=== PATIENT | female | born 1985 | race Caucasian/White ===

== ENCOUNTER → 2017-01-01 | Outpatient (CLI) | payer OTHER ==
[2017-01-01 16:02] LABS: ALBUMIN 4.1 GM/DL (3.2-5.2); ALBUMIN/GLOBULIN RATIO 1.24 (1.00-1.93); ALKALINE PHOSPHATASE 45 U/L (45-117); ALT/SGPT 28 U/L (12-78); ANION GAP 9 MEQ/L (8-16); AST/SGOT 18 U/L (15-37); BILIRUBIN,TOTAL 0.7 MG/DL (0.2-1.0); BLOOD UREA NITROGEN 15 MG/DL (7-18); CALCIUM LEVEL 9.2 MG/DL (8.5-10.1); CARBON DIOXIDE LEVEL 24 MEQ/L (21-32); CHLORIDE LEVEL 106 MEQ/L (98-107); CHOLESTEROL LEVEL 145 MG/DL (<200); CREATININE FOR GFR 0.65 MG/DL (0.55-1.02); GLOMERULAR FILTRATION RATE > 60.0 (>60); GLUCOSE, FASTING 86 MG/DL (70-105); POTASSIUM SERUM 4.1 MEQ/L (3.5-5.1); SODIUM LEVEL 139 MEQ/L (136-145); TOTAL PROTEIN 7.4 GM/DL (6.4-8.2); TRIGLYCERIDES LEVEL 66 MG/DL (<150)
== END ==
LOC: M LAB 14:27
PROVIDERS: ATTEND Nurse Practitioner Family
DX: Z13.228 Encounter for screening for other metabolic disorders (principal)

== ENCOUNTER → 2017-12-23 | Outpatient (REF) | payer OTHER | LOC: M SFHCWAGY 17:12 | DX: R30.0 Dysuria (principal) ==

== ENCOUNTER → 2018-03-18 | Outpatient (CLI) | payer OTHER ==
[2018-03-18 15:32] LABS: BASO % 0.2 % (0.0-1.0); EOS # 0.1 10^3/uL (0.0-0.50); EOS % 0.8 % (0.0-3.0); HEMATOCRIT 37.8 % (36.0-47.0); HEMOGLOBIN 13.3 g/dl (12.0-15.5); IMMATURE GRANULOCYTE % 0.2 % (0-3.0); LYMPH # 1.9 10^3/uL (1.5-4.5); LYMPH % 20.1 % (24.0-44.0); MEAN CORPUSCULAR HEMOGLOBIN 32.7 pg (27.0-33.0); MEAN CORPUSCULAR HGB CONC 35.2 g/dl (32.0-36.5); MEAN CORPUSCULAR VOLUME 92.9 fl (80.0-96.0); MONO # 0.8 10^3/uL (0.0-0.8); MONO % 8.1 % (0.0-5.0); NEUTROPHILS # 6.7 10^3/uL (1.8-7.7); NEUTROPHILS % 70.6 % (36.0-66.0); PLATELET COUNT, AUTOMATED 239 10^3/uL (150-450); RED BLOOD COUNT 4.07 10^6/uL (4.00-5.40); RED CELL DISTRIBUTION WIDTH 11.1 % (11.5-14.5); WHITE BLOOD COUNT 9.5 10^3/uL (4.0-10.0)
[2018-03-18 15:55] LABS: AMPHETAMINES URINE REFLEX NEGATIVE (NEGATIVE); BARBITURATES URINE REFLEX NEGATIVE (NEGATIVE); BENZODIAZEPINES URINE REFLEX NEGATIVE (NEGATIVE); CANNABINOIDS URINE REFLEX NEGATIVE (NEGATIVE); COCAINE METABOLITE URINE REFLE NEGATIVE (NEGATIVE); METHADONE URINE REFLEX NEGATIVE (NEGATIVE); OPIATES URINE REFLEX NEGATIVE (NEGATIVE); PHENCYCLIDINE URINE REFLEX NEGATIVE (NEGATIVE)
[2018-03-18 17:03] LABS: CHLAMYDIA DNA AMPLIFICATION NEGATIVE (NEGATIVE); GC DNA AMPLIFICATION NEGATIVE (NEGATIVE)
[2018-03-20 09:32] LABS: RUBELLA IgG QUALITATIVE SUSCEPTIBLE (IMMUNE)
[2018-03-20 09:45] LABS: HBsAg Prenatal NEGATIVE (NEGATIVE); HEPATITIS B SURFACE ANTIGEN NEGATIVE (NEGATIVE)
[2018-03-20 10:03] LABS: HIV 1&2 SCREEN CENTAUR NEGATIVE (NEGATIVE)
[2018-03-20 10:10] LABS: HEPATITIS C VIRUS ABY INDEX > 11.0 INDEX (<0.8)
[2018-03-24 00:07] LABS: HCV RNA NAA QUALITATIVE Positive (Negative)
== END ==
LOC: M LAB 14:26
DX: Z34.81 Encounter for supervision of other normal pregnancy, first trimester (principal); Z3A.08 8 weeks gestation of pregnancy
CPT/HCPCS: 86762

== ENCOUNTER → 2018-03-24 | Outpatient (CLI) | payer OTHER ==
[2018-03-24 17:33] LABS: ALBUMIN 3.8 GM/DL (3.2-5.2); ALBUMIN/GLOBULIN RATIO 1.03 (1.00-1.93); ALKALINE PHOSPHATASE 38 U/L (45-117); ALT/SGPT 212 U/L (12-78); ANION GAP 10 MEQ/L (8-16); AST/SGOT 95 U/L (7-37); BILIRUBIN,TOTAL 0.4 MG/DL (0.2-1.0); BLOOD UREA NITROGEN 14 MG/DL (7-18); CALCIUM LEVEL 8.8 MG/DL (8.5-10.1); CARBON DIOXIDE LEVEL 24 MEQ/L (21-32); CHLORIDE LEVEL 104 MEQ/L (98-107); CREATININE FOR GFR 0.55 MG/DL (0.55-1.30); GLOMERULAR FILTRATION RATE > 60.0 (>60); GLUCOSE, FASTING 104 MG/DL (70-100); SODIUM LEVEL 138 MEQ/L (136-145); TOTAL PROTEIN 7.5 GM/DL (6.4-8.2)
[2018-03-25 10:56] LABS: HEPATITIS B SURFACE ANTIBODY POSITIVE (POSITIVE)
[2018-03-30 15:40] LABS: ALPHA 2-MACROGLOBULIN 202 mg/dL (110-276); ALT 204 IU/L (0-40); APOLIPOPROTEIN A-1 131 mg/dL (116-209); FIBROSIS SCORE 0.09 (0.00-0.21); GGT 23 IU/L (0-60); HAPTOGLOBIN 107 mg/dL (34-200); HEPATITIS A IgG TOTAL Positive (Negative); HEPATITIS B CORE ANTIBODY IGG Negative (Negative); HEPATITIS C QUANTITATION 3134120 IU/mL (.); HEPATITIS C VIRUS GENOTYPE 3 (.); NECROINFLAM SCORE 0.76 (0.00-0.17); NECROINFLAMM GRADE A3-Severe activity (.); TOTAL BILIRUBIN 0.3 mg/dL (0.0-1.2)
== END ==
LOC: M LAB 16:00
DX: Z34.81 Encounter for supervision of other normal pregnancy, first trimester (principal); Z3A.08 8 weeks gestation of pregnancy
CPT/HCPCS: 84460

== ENCOUNTER → 2018-05-14 | Outpatient (REF) | payer MEDICAID | LOC: M LAB REF 16:54 | DX: Z34.82 Encounter for supervision of other normal pregnancy, second trimester (principal) ==

== ENCOUNTER → 2018-06-16 | Outpatient (CLI) | payer OTHER | LOC: M RAD 12:04 | DX: Z34.82 Encounter for supervision of other normal pregnancy, second trimester (principal); Z36.89 Encounter for other specified antenatal screening; Z3A.20 20 weeks gestation of pregnancy | CPT/HCPCS: 76817 ==

== ENCOUNTER → 2018-07-13 | Outpatient (CLI) | payer OTHER | LOC: M RAD 13:15 | DX: Z36.2 Encounter for other antenatal screening follow-up (principal); O44.22 Partial placenta previa NOS or without hemorrhage, second trimester; Z3A.24 24 weeks gestation of pregnancy | CPT/HCPCS: 76817 ==

== ENCOUNTER → 2018-07-22 | Outpatient (CLI) | payer OTHER ==
[2018-07-22 17:57] LABS: BASO % 0.2 % (0.0-1.0); EOS # 0.2 10^3/uL (0.0-0.50); EOS % 1.3 % (0.0-3.0); HEMATOCRIT 31.9 % (36.0-47.0); HEMOGLOBIN 11.3 g/dl (12.0-15.5); IMMATURE GRANULOCYTE % 0.5 % (0-3.0); LYMPH # 2.6 10^3/uL (1.5-4.5); MEAN CORPUSCULAR HEMOGLOBIN 34.2 pg (27.0-33.0); MEAN CORPUSCULAR HGB CONC 35.4 g/dl (32.0-36.5); MEAN CORPUSCULAR VOLUME 96.7 fl (80.0-96.0); MONO # 0.8 10^3/uL (0.0-0.8); MONO % 5.7 % (0.0-5.0); NEUTROPHILS # 10.7 10^3/uL (1.8-7.7); NEUTROPHILS % 74.3 % (36.0-66.0); PLATELET COUNT, AUTOMATED 250 10^3/uL (150-450); RED CELL DISTRIBUTION WIDTH 11.5 % (11.5-14.5); WHITE BLOOD COUNT 14.4 10^3/uL (4.0-10.0)
[2018-07-22 18:17] LABS: ALBUMIN 3.2 GM/DL (3.2-5.2); ALBUMIN/GLOBULIN RATIO 0.86 (1.00-1.93); ALKALINE PHOSPHATASE 59 U/L (45-117); ALT/SGPT 40 U/L (12-78); AST/SGOT 28 U/L (7-37); BILIRUBIN,DIRECT < 0.1 MG/DL (0.0-0.2); BILIRUBIN,TOTAL 0.2 MG/DL (0.2-1.0); TOTAL PROTEIN 6.9 GM/DL (6.4-8.2)
[2018-07-27 14:09] LABS: HEPATITIS C QUANTITATION 9454760 IU/mL (.)
== END ==
LOC: M LAB 15:51
DX: B18.2 Chronic viral hepatitis C (principal)
CPT/HCPCS: 80076

== ENCOUNTER → 2018-07-22 | Outpatient (CLI) | payer OTHER ==
[2018-07-22 17:57] LABS: HEMOGLOBIN 11.3 g/dl (12.0-15.5); MEAN CORPUSCULAR HEMOGLOBIN 33.9 pg (27.0-33.0); MEAN CORPUSCULAR HGB CONC 35.3 g/dl (32.0-36.5); MEAN CORPUSCULAR VOLUME 96.1 fl (80.0-96.0); PLATELET COUNT, AUTOMATED 231 10^3/uL (150-450); RED BLOOD COUNT 3.33 10^6/uL (4.00-5.40); RED CELL DISTRIBUTION WIDTH 11.5 % (11.5-14.5)
[2018-07-22 18:21] LABS: GLUCOSE CHALLENGE TEST 1 HOUR 117 MG/DL (LESS THAN 140)
== END ==
LOC: M LAB 15:42
DX: Z34.82 Encounter for supervision of other normal pregnancy, second trimester (principal)
CPT/HCPCS: 82950

== ENCOUNTER → 2018-08-19 | Outpatient (CLI) | payer OTHER | LOC: M RAD 15:53 | DX: O32.2XX0 Maternal care for transverse and oblique lie, not applicable or unspecified (principal); Z36.89 Encounter for other specified antenatal screening; Z3A.30 30 weeks gestation of pregnancy | CPT/HCPCS: 76817 ==

== ENCOUNTER → 2018-10-01 | Outpatient (REF) | payer OTHER | LOC: M LAB REF 17:07 | PROVIDERS: ATTEND Advanced Practice Midwife | DX: O98.413 Viral hepatitis complicating pregnancy, third trimester (principal) ==

== ENCOUNTER → 2018-10-05 | Outpatient (REF) | payer OTHER ==
[2018-10-05 15:51] LABS: BASO % 0.2 % (0.0-1.0); EOS # 0.1 10^3/uL (0.0-0.50); HEMATOCRIT 34.7 % (36.0-47.0); LYMPH # 1.8 10^3/uL (1.5-4.5); LYMPH % 17.1 % (24.0-44.0); MEAN CORPUSCULAR HEMOGLOBIN 33.9 pg (27.0-33.0); MEAN CORPUSCULAR HGB CONC 34.6 g/dl (32.0-36.5); MONO # 0.9 10^3/uL (0.0-0.8); MONO % 8.3 % (0.0-5.0); NEUTROPHILS # 7.7 10^3/uL (1.8-7.7); NEUTROPHILS % 72.7 % (36.0-66.0); PLATELET COUNT, AUTOMATED 250 10^3/uL (150-450); RED BLOOD COUNT 3.54 10^6/uL (4.00-5.40); WHITE BLOOD COUNT 10.6 10^3/uL (4.0-10.0)
[2018-10-05 15:54] LABS: ALBUMIN 2.7 GM/DL (3.2-5.2); ALT/SGPT 56 U/L (12-78); BILIRUBIN,TOTAL 0.3 MG/DL (0.2-1.0); BLOOD UREA NITROGEN 9 MG/DL (7-18); CALCIUM LEVEL 8.7 MG/DL (8.5-10.1); CARBON DIOXIDE LEVEL 25 MEQ/L (21-32); CHLORIDE LEVEL 104 MEQ/L (98-107); CREATININE FOR GFR 0.54 MG/DL (0.55-1.30); GLOMERULAR FILTRATION RATE > 60.0 (>60); GLUCOSE, FASTING 69 MG/DL (70-100); POTASSIUM SERUM 4.4 MEQ/L (3.5-5.1); SODIUM LEVEL 136 MEQ/L (136-145); TOTAL PROTEIN 6.3 GM/DL (6.4-8.2)
[2018-10-09 00:10] LABS: HEPATITIS C QUANTITATION 4527900 IU/mL (.)
== END ==
LOC: M SFHCPLAZ 13:37
PROVIDERS: ATTEND Internal Medicine Infectious Disease
DX: B18.2 Chronic viral hepatitis C (principal)

== ENCOUNTER 2018-10-29 18:27 | Inpatient (IN) | payer OTHER ==
[~2018-10-29] VITALS: Ht 175.3 cm; Wt 82.7 kg
[2018-10-29 18:45] VITALS: BP 136/76
[2018-10-29] MEDS ORDERED: PRENTAB9 PO (19:00)
[2018-10-29] MEDS ORDERED: MAPA500T2 PO (19:00)
[2018-10-29] MEDS ORDERED: MELA5SUB SL (19:03)
[2018-10-29] MEDS ORDERED: SUBO12MI SL (19:18)
[2018-10-29 19:29] VITALS: BP 139/82
[2018-10-29 19:30] VITALS: BP 141/90
[2018-10-29] MEDS: miSOPROStol 50 MCG 1/2 TAB (S0191) PO SCH (20:03)
[2018-10-29 20:06] LABS: HEMATOCRIT 36.5 % (36.0-47.0); HEMOGLOBIN 12.8 g/dl (12.0-15.5); MEAN CORPUSCULAR HGB CONC 35.1 g/dl (32.0-36.5); MEAN CORPUSCULAR VOLUME 97.1 fl (80.0-96.0); PLATELET COUNT, AUTOMATED 241 10^3/uL (150-450); RED BLOOD COUNT 3.76 10^6/uL (4.00-5.40); WHITE BLOOD COUNT 15.6 10^3/uL (4.0-10.0)
--- NOTE | 2018-10-29 20:08 | HPE ---
DATE OF ADMISSION: 10/29/2018 This is a 33-year-old female at 40 and 2/7 weeks gestation by LMP consistent with 7 week ultrasound, EDC 10/27/2018 who presents from the office after routine visit revealing an elevated blood pressure. She had a reading of 160/82 and a subsequent reading of 142/90. She denies headaches or blurry vision. She has occasional contractions. COURSE: The patient initiated care at 8 weeks gestation 03/18/2018. Her first trimester blood pressure was 124/72. Weight [address] Tinajero for a previous diagnosis of hepatitis C. She has a history of mildly elevated liver function tests. On ultrasound she initially had a low lying placenta as well as an eccentric cord insertion noted on the placenta. MEDICAL HISTORY: 1. Hepatitis C. 2. History of opioid abuse, heroin use. She has been clean for 4 years. She takes Suboxone. SURGICAL HISTORY: 1. Tonsillectomy. ALLERGIES: None. SOCIAL HISTORY: The patient's boyfriend/partner is involved. Patient smokes cigarettes and she has been clean from drug use for 4 years. She is maintained on Suboxone. FAMILY HISTORY: Noncontributory. PHYSICAL EXAMINATION: Blood pressure 141/90. She is in no apparent distress. Head and neck is normal. Lungs are clear. Heart regular rate and rhythm. Abdomen is nontender and gravid. heart tones are category 1. Sterile vaginal exam 1 cm, 50%, -2 posterior vertex soft. Extremities nontender and trace edema. LABS: Rubella susceptible, IV screen 117, GBS negative 10/01/2018. ASSESSMENT: 33-year-old female at 40 and 2/7 weeks gestation who presents with elevated blood pressure over multiple readings. PLAN: The plan is to admit for labor induction on 10/29/2018. Risks of induction were discussed. Due to history of prior drug use we will recommend urine drug screen on admission. Also repeat liver function test on admission due to history of hepatitis C and elevated liver function test.
[2018-10-29 20:21] LABS: ALBUMIN 2.9 GM/DL (3.2-5.2); ALT/SGPT 43 U/L (12-78); BILIRUBIN,TOTAL 0.3 MG/DL (0.2-1.0); BLOOD UREA NITROGEN 7 MG/DL (7-18); CALCIUM LEVEL 8.7 MG/DL (8.5-10.1); CARBON DIOXIDE LEVEL 24 MEQ/L (21-32); CHLORIDE LEVEL 103 MEQ/L (98-107); GLOMERULAR FILTRATION RATE > 60.0 (>60); GLUCOSE, FASTING 81 MG/DL (70-100); POTASSIUM SERUM 4.4 MEQ/L (3.5-5.1); SODIUM LEVEL 135 MEQ/L (136-145); TOTAL PROTEIN 6.5 GM/DL (6.4-8.2)
[2018-10-29 20:27] LABS: AMPHETAMINES URINE REFLEX NEGATIVE (NEGATIVE); BARBITURATES URINE REFLEX NEGATIVE (NEGATIVE); BENZODIAZEPINES URINE REFLEX NEGATIVE (NEGATIVE); CANNABINOIDS URINE REFLEX NEGATIVE (NEGATIVE); COCAINE METABOLITE URINE REFLE NEGATIVE (NEGATIVE); METHADONE URINE REFLEX NEGATIVE (NEGATIVE); OPIATES URINE REFLEX NEGATIVE (NEGATIVE); PHENCYCLIDINE URINE REFLEX NEGATIVE (NEGATIVE)
[2018-10-30] VITALS (13 sets, daily range): BP systolic 115–143; BP diastolic 57–83
[2018-10-30] MEDS: miSOPROStol 50 MCG 1/2 TAB (S0191) PO SCH ×3 (04:01→10:44)
[2018-10-30] MEDS ORDERED: ONDANSETRON 4MG/2ML VIAL (J2405) IV PRN ×4 (07:30→15:09)
[2018-10-30] MEDS ORDERED: LACTATED RINGER'S 1000 ML IV STA (12:39)
[2018-10-30] MEDS ORDERED: ceFAZolin 2 GM/D5W 50 ML IV BAG (J0690 PER 500MG) As Ordered ONE (12:40)
[2018-10-30] MEDS ORDERED: BICITRA 30ML SOLN UDC As Ordered ONE (12:40)
[2018-10-30] MEDS ORDERED: BICITRA 30ML SOLN UDC PO ONE (12:45)
[2018-10-30] MEDS ORDERED: MORPHINE PRES-FREE INJ 10 MG/10 ML VIAL (J2274) As Ordered ONE (12:49)
[2018-10-30] MEDS ORDERED: OXYTOCIN INJ 10 UNITS/ML VIAL (J2590) As Ordered ONE ×3 (12:49→13:45)
[2018-10-30] MEDS ORDERED: KETOROLAC 60 MG/2 ML VIAL (J1885) As Ordered ONE (12:58)
[2018-10-30] MEDS ORDERED: ONDANSETRON 4MG/2ML VIAL (J2405) As Ordered ONE (12:59)
[2018-10-30] MEDS ORDERED: dexameTHASONE 4 MG/ML 1ML VIAL (J1100) As Ordered ONE (12:59)
[2018-10-30] MEDS ORDERED: BUPIVACAINE/DEXTROSE 0.75% 2 ML AMP As Ordered ONE (13:00)
[2018-10-30 13:05] LABS: HEMATOCRIT 34.9 % (36.0-47.0); HEMOGLOBIN 12.3 g/dl (12.0-15.5); MEAN CORPUSCULAR HEMOGLOBIN 34.5 pg (27.0-33.0); MEAN CORPUSCULAR HGB CONC 35.2 g/dl (32.0-36.5); MEAN CORPUSCULAR VOLUME 97.8 fl (80.0-96.0); PLATELET COUNT, AUTOMATED 246 10^3/uL (150-450); RED BLOOD COUNT 3.57 10^6/uL (4.00-5.40); WHITE BLOOD COUNT 14.8 10^3/uL (4.0-10.0)
[2018-10-30] MEDS ORDERED: PHENYLephrine HCL 500 MCG/5 ML (100MCG/ML) SYRINGE (J2370) As Ordered ONE (13:26)
[2018-10-30 13:29] LABS: ALT/SGPT 38 U/L (12-78); BILIRUBIN,TOTAL 0.4 MG/DL (0.2-1.0); CREATININE FOR GFR 0.62 MG/DL (0.55-1.30); GLOMERULAR FILTRATION RATE > 60.0 (>60); LDH LACTATE DEHYDROGENASE 167 U/L (84-246); URIC ACID 4.5 MG/DL (2.6-6.0)
[2018-10-30 13:38] LABS: CORD GAS ABE A -2.5; CORD GAS HCO3 A 25.9 MEQ/L; CORD GAS HCO3 V 27.4 MEQ/L; CORD GAS O2 SAT V 40.9 %; CORD GAS PCO2 A 59.2 mmHg; CORD GAS PCO2 V 54.6 mmHg; CORD GAS PH A 7.259 UNITS; CORD GAS PH V 7.318 UNITS; CORD GAS PO2 A 13.7 mmHg; CORD GAS PO2 V 19.1 mmHg; CORD GAS SBC A 20.4 MEQ/L; CORD GAS TCO2 A 27.7 MEQ/L
[2018-10-30] MEDS ORDERED: OXYTOCIN DRIP 30 UNITS in APPROPRIATE DILUENT 1 EA IV SCH (14:02)
[2018-10-30] MEDS ORDERED: fentaNYL 100 MCG/2 ML INJECTION (J3010) IV PRN (14:15)
[2018-10-30] MEDS ORDERED: MEASLES,MUMPS,RUBELLA VACCINE INJ (MMR-II) (90707) SC SCH (14:15)
[2018-10-30] MEDS ORDERED: RHOGAM 300 MCG (1500 IU) INJ (J2790) IM SCH (14:15)
[2018-10-30] MEDS ORDERED: NORCO, ANEXSIA 5/325MG TABLET (HYDROcodone/ACETAMINOPHEN) PO PRN (14:15)
[2018-10-30] MEDS ORDERED: MOM 30ML SUSPENSION UDC PO PRN (14:15)
[2018-10-30] MEDS ORDERED: LR 1,000 ML IV SCH (14:30)
[2018-10-30] MEDS ORDERED: OXYTOCIN 30 UNITS IN 0.9% NaCl 500ML IV BAG (J2590) As Ordered ONE (14:40)
[2018-10-30] MEDS ORDERED: NALOXONE INJ 0.4 MG/1 ML VIAL (J2310) IV PRN ×2 (15:09)
[2018-10-30] MEDS ORDERED: NALBUPHINE HCL 10 MG/ML AMP (J2300) IV PRN (15:09)
[2018-10-30] MEDS ORDERED: diphenhydrAMINE INJ 50MG/ML VIAL (J1200) IV PRN (15:09)
[2018-10-30] MEDS ORDERED: METOCLOPRAMIDE INJ 10MG/2ML VIAL (J2765) IV PRN (15:09)
[2018-10-30] MEDS: KETOROLAC 30 MG/ML VIAL (J1885) IV SCH (18:44)
[2018-10-30] MEDS: ACETAMINOPHEN 500 MG TAB PO PRN (22:26)
[2018-10-30] MEDS: DOCUSATE SODIUM 100 MG CAP PO SCH (22:26)
[2018-10-31] MEDS: KETOROLAC 30 MG/ML VIAL (J1885) IV SCH ×4 (01:12→17:58)
[2018-10-31 02:00] VITALS: BP 122/63
[2018-10-31] MEDS ORDERED: LR 1,000 ML IV ONE (03:30)
[2018-10-31 06:07] VITALS: BP 139/77
[2018-10-31] MEDS: ACETAMINOPHEN 500 MG TAB PO PRN ×2 (06:09→21:17)
[2018-10-31 07:32] LABS: HEMATOCRIT 23.1 % (36.0-47.0); MEAN CORPUSCULAR HEMOGLOBIN 33.8 pg (27.0-33.0); MEAN CORPUSCULAR HGB CONC 35.1 g/dl (32.0-36.5); MEAN CORPUSCULAR VOLUME 96.3 fl (80.0-96.0); PLATELET COUNT, AUTOMATED 200 10^3/uL (150-450); WHITE BLOOD COUNT 16.2 10^3/uL (4.0-10.0)
[2018-10-31 07:40] LABS: HEMOGLOBIN 8.1 g/dl (12.0-15.5)
[2018-10-31] MEDS: DOCUSATE SODIUM 100 MG CAP PO SCH ×2 (09:13→21:17)
[2018-10-31] MEDS: PRENATAL VITAMINS CHEWABLE TABLET PO SCH (09:13)
[2018-10-31] MEDS: BUPRENORPHINE 8 MG PO SCH ×2 (09:20→20:02)
--- NOTE | 2018-10-31 10:18 | NUR ---
POD#1 S: Doing well w/o complaints. Tolerating diet, ambulating, voiding and pain well controlled with Toradol. O: vss, AF gen: well appearing abd: soft, appropriately tender incision: dress ext: neg calf tenderness A/P: POD #1 s/p emergent 1LTCS for placenta abruption- stable -continue /postoperative care -d/c plans for tomorrow Tasneem Lopez MD
[2018-10-31 11:00] VITALS: BP 118/65
--- NOTE | 2018-10-31 13:01 | RO ---
DATE OF PROCEDURE: 10/29/2018 PREPROCEDURE DIAGNOSIS: Placental abruption, hemorrhage. POSTPROCEDURE DIAGNOSIS: Placental abruption. PROCEDURE PERFORMED: Primary lower transverse section. SURGEON: Tasneem Lopez MD CT TECHNICIAN: Radha Escobar CNM ANESTHESIA: Spinal. ESTIMATED BLOOD LOSS: 500 mL. INTRAVENOUS FLUIDS: 1500 mL of lactated Ringer solution. URINE OUTPUT: 100 mL. OPERATIVE FINDINGS: Large placental abruption with a large amount of clots and bleeding upon entry into the uterine cavity with couvelaire uterus. Live born male infant. scores 9 and 9. Weight was 3670 grams or 8 pound. SPECIMENS: Placenta and cord gases. Cord gases 7.25, 7.31 with base excess of -2.5. INDICATION FOR OPERATION: Ms. Turcios is a 33-year-old 2, para 0 who was sent from the office on 10/29/2018 for diagnosis of gestational hypertension and for induction of labor. Her induction was started with misoprostol, which was unremarkable until the next day, at which point I was notified of a moderate amount of bleeding. She was assessed by Radha Escobar, at which time she had some cervical change, category 1 heart rate tracing. Shortly after being notified, Radha Escobar was notified once again and at this time a large amount of bleeding, approximately 400 mL. The patient was then consented for section with antepartum bleeding, which was concerning for placenta abruption. tracing was reassuring during this time. She was consented and we proceeded for an urgent section. DESCRIPTION OF PROCEDURE: After informed consent was obtained and written consent was reviewed, the patient was brought to the operating room where spinal anesthesia was placed. She was then prepped and draped in a normal sterile fashion. Pelayo catheter had previously been placed and set to gravity. A time out in the operating room was then performed, identifying the patient, procedure being performed, as well as drug allergies. Anesthesia was tested and deemed to be adequate. Pfannenstiel skin incision was then made and carried down to the underlying rectus fascia. The fascia was scored and the incision was extended bilaterally. The fascia was then dissected off the underlying rectus muscles, both superiorly and inferiorly. The rectus muscles were in the midline. The peritoneum was then entered sharply. The vesicouterine peritoneum was then entered, was tented and excised to create a bladder flap. The bladder blade was then placed to retract back the bladder. Curvilinear incision was then made in the lower uterine segment. A large amount of clots and blood were then obtained. head was brought to the level of the incision and was delivered atraumatically, followed by shoulders and corpus. There was a nuchal cord and the cord was clamped times two. The infant was taken over to the warmer with a good cry. Cord gases were obtained. Placenta was then drained and delivered grossly intact. The uterus was then exteriorized and cleared of all clots and debris. Uterine incision was then closed in two layers using #0 Vicryl in a running nonlocking fashion, followed by a second layer for imbrication in a running nonlocking fashion. The abdomen was then suctioned. The uterus was returned and the patient's abdomen was inspected and noted to be hemostatic. Anterior peritoneum was then reapproximated with #3-0 Vicryl. The rectus muscles were reapproximated with #3-0 Vicryl. The fascia was then closed with #0 Vicryl in a running nonlocking fashion. The subcutaneous tissue was then reapproximated with #3-0 Vicryl. Several subdermal sutures were placed of #3-0 Vicryl and the skin was closed with #4-0 Monocryl in a subcuticular fashion. The incision was then cleaned and dried and was dressed. The patient was then sent to recovery in stable condition. Counts were correct. My surgical dressing maker, Radha Escobar, played an essential role with doing the operation. She assisted with identification of structures, as well as tissue retraction, delivery of the , as well as wound closure. ZEINA
[2018-10-31 14:41] VITALS: BP 132/85
[2018-10-31] MEDS ORDERED: IBUPROFEN 800 MG TAB PO SCH (15:00)
[2018-10-31 18:00] VITALS: BP 154/79
[2018-10-31 21:58] VITALS: BP 128/69
[2018-11-01] MEDS: KETOROLAC 30 MG/ML VIAL (J1885) IV SCH ×3 (00:20→12:39)
[2018-11-01 01:54] VITALS: BP 120/69
[2018-11-01 05:48] VITALS: BP 139/80
[2018-11-01] MEDS: PRENATAL VITAMINS CHEWABLE TABLET PO SCH (09:00)
[2018-11-01] MEDS: DOCUSATE SODIUM 100 MG CAP PO SCH ×2 (10:00→20:51)
[2018-11-01] MEDS: BUPRENORPHINE 8 MG PO SCH ×2 (10:01→20:53)
--- NOTE | 2018-11-01 10:10 | NUR ---
POD#1 S: Doing well w/o complaints. Tolerating diet, ambulating, voiding and pain well controlled with Toradol. Switch to motrin today O: vss, AF gen: well appearing abd: soft, appropriately tender incision: dress ext: neg calf tenderness A/P: POD #2 s/p emergent 1LTCS for placenta abruption- stable -continue /postoperative care -d/c plans for tomorrow Tasneem Lopez MD
[2018-11-01 10:47] VITALS: BP 121/67
[2018-11-01 15:00] VITALS: BP 139/81
[2018-11-01] MEDS: ACETAMINOPHEN 500 MG TAB PO PRN (15:34)
[2018-11-01 18:55] VITALS: BP 139/76
[2018-11-01] MEDS: IBUPROFEN 800 MG TAB PO SCH (20:52)
[2018-11-02] MEDS: IBUPROFEN 800 MG TAB PO SCH ×2 (04:52→12:32)
[2018-11-02] MEDS ORDERED: IBUP1TAB7 PO (05:23)
[2018-11-02 06:00] VITALS: BP 124/76
[2018-11-02] MEDS: BUPRENORPHINE 8 MG PO SCH (08:21)
[2018-11-02] MEDS: DOCUSATE SODIUM 100 MG CAP PO SCH (08:21)
[2018-11-02] MEDS: PRENATAL VITAMINS CHEWABLE TABLET PO SCH (08:21)
--- NOTE | 2018-11-02 09:56 | DSES ---
DATE OF ADMISSION: 10/29/2018 DATE OF DISCHARGE: 11/02/2018 DISCHARGE DIAGNOSES: 1. Gestational hypertension. 2. section for placental abruption. PROCEDURES PERFORMED: 1. Spinal anesthesia. 2. section. DISCHARGE CONDITION: Stable. HISTORY AND HOSPITAL COURSE: Mrs. Turcios is a 33-year-old who presented at 40 weeks for induction of labor secondary to recent diagnosis of gestational hypertension. During her intrapartum course, she started to experience vaginal bleeding. This continued with approximately 400-500 mL of blood loss. She had a reassuring tracing, but with concerns for placental abruption she was taken for section which was uncomplicated and showing a placental abruption. It was productive of a live born male , Apgars 9 and 9. Weight was 3670 grams or 8 pounds. Mrs. Turcios did well postoperatively. By postoperative day #3, had met all discharge criteria and was discharged home in stable condition. PHYSICAL EXAM DAY OF DISCHARGE: Her vital signs are stable. She is afebrile. General Appearance: Well appearing, in no acute distress. Abdomen: Soft. Appropriately tender. Fundus was firm below umbilicus. Incision was dressed. Extremities negative for calf tenderness. DISCHARGE INSTRUCTIONS: 1. She was instructed to followup in 2 weeks for an incision check. 2. To remain on pelvic rest for 6 weeks. 3. To report severe pain, heavy vaginal bleeding, fever, or incisional issues. ZEINA
[2018-11-02] MEDS ORDERED: MILK120011 PO (10:11)
[2018-11-02] MEDS ORDERED: COLA100C5 PO (10:11)
== END 2018-11-02 14:00 | disposition home or self-care (01) | DRG 540 ==
LOC: M LDI 18:27 → M OBS 10-30 15:55
PROVIDERS: ADMIT Specialist; ATTEND Obstetrics & Gynecology
PROC: 10D00Z1 Extraction of Products of Conception, Low, Open Approach (ICD-10-PCS; principal; 2018-10-29)
PROC: 3E0P7GC Introduction of Other Therapeutic Substance into Female Reproductive, Via Natural or Artificial Opening (ICD-10-PCS; 2018-10-29)
DX: O13.4 Gestational [pregnancy-induced] hypertension without significant proteinuria, complicating childbirth (principal); O45.93 Premature separation of placenta, unspecified, third trimester; O48.0 Post-term pregnancy; Z3A.40 40 weeks gestation of pregnancy; O69.81X0 Labor and delivery complicated by cord around neck, without compression, not applicable or unspecified; Z37.0 Single live birth; O99.334 Smoking (tobacco) complicating childbirth; F17.210 Nicotine dependence, cigarettes, uncomplicated

== ENCOUNTER → 2019-03-30 | Outpatient (REF) | payer OTHER ==
[~2019-03-30] MED LIST: COLA100C5 PO; IBUP1TAB7 PO; MAPA500T2 PO; MELA5SUB SL; MILK120011 PO; PRENTAB9 PO; SUBO12MI SL
[2019-04-06 14:07] LABS: HPV HYBRID CAPTURE II Negative (Negative)
== END ==
LOC: M LAB REF 18:29
PROVIDERS: ATTEND Advanced Practice Midwife
DX: Z12.4 Encounter for screening for malignant neoplasm of cervix (principal)

== ENCOUNTER → 2019-07-12 | Outpatient (REF) | payer OTHER | LOC: M SFHCPLAZ 14:13 | PROVIDERS: ATTEND Internal Medicine Infectious Disease | DX: B18.2 Chronic viral hepatitis C (principal) ==

== ENCOUNTER → 2019-07-14 | Outpatient (CLI) | payer OTHER ==
[2019-07-14 18:43] LABS: BASO % 0.3 % (0.0-1.0); EOS # 0.4 10^3/uL (0.0-0.5); EOS % 5.6 % (0.0-3.0); HEMATOCRIT 40.8 % (36.0-47.0); HEMOGLOBIN 14.2 g/dl (12.0-15.5); LYMPH # 3.7 10^3/uL (1.5-5.0); LYMPH % 51.5 % (24.0-44.0); MEAN CORPUSCULAR HEMOGLOBIN 33.3 pg (27.0-33.0); MEAN CORPUSCULAR HGB CONC 34.8 g/dl (32.0-36.5); MEAN CORPUSCULAR VOLUME 95.8 fl (80.0-96.0); MONO # 0.5 10^3/uL (0.0-0.8); MONO % 6.3 % (0.0-5.0); NEUTROPHILS # 2.6 10^3/uL (1.5-8.5); NEUTROPHILS % 36.2 % (36.0-66.0); PLATELET COUNT, AUTOMATED 208 10^3/uL (150-450); RED BLOOD COUNT 4.26 10^6/uL (4.00-5.40); WHITE BLOOD COUNT 7.2 10^3/uL (4.0-10.0)
[2019-07-14 20:04] LABS: ALBUMIN 3.8 GM/DL (3.2-5.2); ALT/SGPT 231 U/L (12-78); BILIRUBIN,TOTAL 0.3 MG/DL (0.2-1.0); BLOOD UREA NITROGEN 13 MG/DL (7-18); CALCIUM LEVEL 8.9 MG/DL (8.5-10.1); CARBON DIOXIDE LEVEL 27 MEQ/L (21-32); CHLORIDE LEVEL 108 MEQ/L (98-107); GLOMERULAR FILTRATION RATE > 60.0 (>60); GLUCOSE, FASTING 122 MG/DL (70-100); SODIUM LEVEL 140 MEQ/L (136-145); TOTAL PROTEIN 7.8 GM/DL (6.4-8.2)
[2019-07-14 20:14] LABS: HCG, SERUM QUALITATIVE NEGATIVE (NEGATIVE)
[2019-07-20 14:12] LABS: HEPATITIS C QUANTITATION 554790 IU/mL (.); HEPATITIS C VIRUS GENOTYPE 3 (.)
== END ==
LOC: M LAB 17:24
PROVIDERS: ATTEND Internal Medicine Infectious Disease
DX: B18.2 Chronic viral hepatitis C (principal)

== ENCOUNTER → 2019-08-17 | Outpatient (CLI) | payer OTHER ==
[2019-08-17 16:20] LABS: ALBUMIN 3.8 GM/DL (3.2-5.2); BILIRUBIN,DIRECT 0.2 MG/DL (0.0-0.2); BILIRUBIN,TOTAL 0.6 MG/DL (0.2-1.0); TOTAL PROTEIN 7.8 GM/DL (6.4-8.2)
[2019-08-23 14:10] LABS: HEPATITIS C QUANTITATION 40 IU/mL (.)
== END ==
LOC: M LAB 14:42
PROVIDERS: ATTEND Internal Medicine Infectious Disease
DX: B18.2 Chronic viral hepatitis C (principal)

== ENCOUNTER → 2019-12-06 | Outpatient (REF) | payer OTHER ==
[2019-12-06 18:10] LABS: ALBUMIN 4.3 GM/DL (3.2-5.2); BILIRUBIN,DIRECT 0.2 MG/DL (0.0-0.2); BILIRUBIN,TOTAL 0.6 MG/DL (0.2-1.0); TOTAL PROTEIN 7.9 GM/DL (6.4-8.2)
[2019-12-09 14:07] LABS: HEPATITIS C QUANTITATION HCV Not Detected IU/mL (.)
== END ==
LOC: M SFHCPLAZ 13:49
PROVIDERS: ATTEND Internal Medicine Infectious Disease
DX: B18.2 Chronic viral hepatitis C (principal)

== ENCOUNTER → 2020-08-03 | Outpatient (CLI) | payer OTHER ==
[2020-08-03 18:30] LABS: ALBUMIN 4.2 GM/DL (3.2-5.2); BILIRUBIN,DIRECT 0.2 MG/DL (0.0-0.2); BILIRUBIN,TOTAL 0.8 MG/DL (0.2-1.0); TOTAL PROTEIN 8.3 GM/DL (6.4-8.2)
== END ==
LOC: M LAB 17:22
PROVIDERS: ATTEND Family Medicine
DX: F11.11 Opioid abuse, in remission (principal)

== ENCOUNTER → 2020-09-29 | Outpatient (REF) | payer OTHER | LOC: M LAB REF 19:17 | PROVIDERS: ATTEND Physician Assistant | DX: R30.0 Dysuria (principal) ==

== ENCOUNTER → 2020-10-20 | Outpatient (REF) | payer OTHER ==
[2020-10-21 19:10] LABS: CHLAMYDIA DNA AMPLIFICATION NEGATIVE (NEGATIVE); GC DNA AMPLIFICATION NEGATIVE (NEGATIVE)
== END ==
LOC: M WUC 19:04
PROVIDERS: ATTEND Physician Assistant
DX: R30.0 Dysuria (principal)

== ENCOUNTER → 2021-12-21 | Outpatient (CLI) | payer OTHER ==
[2021-12-21 18:13] LABS: ALBUMIN 3.3 GM/DL (3.2-5.2); BILIRUBIN,DIRECT 0.1 MG/DL (0.0-0.2); BILIRUBIN,TOTAL 0.3 MG/DL (0.2-1.0); TOTAL PROTEIN 6.9 GM/DL (6.4-8.2)
== END ==
LOC: M LAB 16:59
PROVIDERS: ATTEND Family Medicine
DX: F11.11 Opioid abuse, in remission (principal)

== ENCOUNTER 2022-11-11 02:24 | Inpatient (IN) | payer OTHER ==
[~2022-11-11] VITALS: Ht 175.3 cm; Wt 52.2 kg
[2022-11-11] MEDS ORDERED: ONDANSETRON 4MG ORAL DISINTEGRATING TAB PO ONE (04:20)
[2022-11-11] MEDS ORDERED: METOCLOPRAMIDE 10MG TAB PO ONE (05:40)
[2022-11-11] MEDS ORDERED: LORazepam 2 MG/ML 1ML VIAL IV STA ×2 (07:48→10:02)
[2022-11-11] MEDS ORDERED: MULTIVITAMIN -ADULT INJECTION 10 ML, THIAMINE INJection 100 MG, FOLIC ACID 1 MG in NS 1... IV ONE (07:50)
[2022-11-11 09:14] LABS: BASO % 0.1 % (0.0-1.0); HEMATOCRIT 35.4 % (36.0-47.0); HEMOGLOBIN 12.5 g/dl (12.0-15.5); LYMPH # 1.5 10^3/uL (1.5-5.0); LYMPH % 11.6 % (24.0-44.0); MEAN CORPUSCULAR HEMOGLOBIN 33.8 pg (27.0-33.0); MEAN CORPUSCULAR HGB CONC 35.3 g/dl (32.0-36.5); MEAN CORPUSCULAR VOLUME 95.7 fl (80.0-96.0); MONO # 0.7 10^3/uL (0.0-0.8); MONO % 5.6 % (2.0-8.0); NEUTROPHILS # 10.9 10^3/uL (1.5-8.5); NEUTROPHILS % 82.3 % (36.0-66.0); PLATELET COUNT, AUTOMATED 148 10^3/uL (150-450); WHITE BLOOD COUNT 13.2 10^3/uL (4.0-10.0)
[2022-11-11] MEDS ORDERED: KCL 10MEQ/100ML SWI (KRUN) 10 MEQ in IV 1 EA IV ONE ×2 (09:30→10:35)
[2022-11-11] MEDS ORDERED: NS 500 ML IV ONE (09:30)
[2022-11-11] MEDS ORDERED: MAG SULF 1GM/100ML (MAG RUN) 1 GM in IV 1 EA IV ONE ×2 (09:30→09:50)
[2022-11-11 09:38] LABS: ETHYL ALCOHOL (ETHANOL) < 0.003 % (0.000-0.010)
[2022-11-11 09:39] LABS: SALICYLATE LEVEL < 3.0 MG/DL (<30)
[2022-11-11 09:40] LABS: CPK CREATINE PHOSPHOKINASE 60 U/L (34-145)
[2022-11-11 09:44] LABS: ALBUMIN 3.6 G/DL (3.2-5.2); ALKALINE PHOSPHATASE 93 U/L (46-116); ALT/SGPT 20 U/L (7.0-40); AST/SGOT 36 U/L (<34); BILIRUBIN,TOTAL 2.8 MG/DL (0.3-1.2); BLOOD UREA NITROGEN 15 MG/DL (9-23); CALCIUM LEVEL 9.3 MG/DL (8.5-10.1); CARBON DIOXIDE LEVEL 34 MMOL/L (20-31); CHLORIDE LEVEL 97 MMOL/L (98-107); CREATININE FOR GFR 0.53 MG/DL (0.55-1.30); GLOMERULAR FILTRATION RATE > 60.0 (>60); GLUCOSE, FASTING 136 MG/DL (60-100); MAGNESIUM LEVEL 1.3 MG/DL (1.8-2.4); POTASSIUM SERUM 3.1 MMOL/L (3.5-5.1); SODIUM LEVEL 140 MMOL/L (136-145); TOTAL PROTEIN 7.5 G/DL (5.7-8.2)
[2022-11-11 09:47] LABS: ACETAMINOPHEN LEVEL < 2.0 UG/ML (10.0-20.0)
[2022-11-11] MEDS ORDERED: POTASSIUM CHLORIDE 10MEQ SR TABLET PO ONE ×2 (09:50→18:30)
[2022-11-11 10:01] LABS: HCG, SERUM QUALITATIVE NEGATIVE (NEGATIVE)
[2022-11-11] MEDS ORDERED: BUPR1FIL SL (10:39)
[2022-11-11] MEDS ORDERED: HOME MED LIST COMPLETE! XX SCH (10:45)
[2022-11-11] MEDS: NS 1,000 ML IV SCH ×2 (11:50→23:31)
[2022-11-11 11:53] LABS: LIPASE 46 U/L (12-53)
[2022-11-11] MEDS: LORazepam 2 MG TAB PO PRN ×2 (12:23→17:51)
[2022-11-11 13:48] LABS: MAGNESIUM LEVEL 2.5 MG/DL (1.8-2.4); POTASSIUM SERUM 2.9 MMOL/L (3.5-5.1)
[2022-11-11] MEDS ORDERED: OXAZEPAM 15MG CAP PO SCH (14:00)
[2022-11-11] MEDS: KCL 10MEQ/100ML SWI (KRUN) 10 MEQ in IV 1 EA IV SCH ×4 (15:34→21:09)
[2022-11-11 17:00] VITALS: BP 130/74
[2022-11-11] MEDS: PANTOPRAZOLE 40MG VIAL IV SCH ×2 (17:10→21:09)
[2022-11-11] MEDS: SUCRALFATE 1 GM TAB PO SCH ×2 (17:10→21:09)
[2022-11-11] MEDS: HEPARIN SOD (PORCINE) 5000UNITS/ML 1ML VIAL/SYRINGE SC SCH ×2 (17:22→21:09)
[2022-11-11 20:00] VITALS: BP 124/77
[2022-11-11] MEDS: OXAZEPAM 15MG CAP PO SCH (23:31)
[2022-11-12] VITALS (7 sets, daily range): BP systolic 125–154; BP diastolic 80–92
[2022-11-12] MEDS: OXAZEPAM 15MG CAP PO SCH ×3 (05:01→21:01)
[2022-11-12] MEDS: HEPARIN SOD (PORCINE) 5000UNITS/ML 1ML VIAL/SYRINGE SC SCH ×3 (05:02→21:01)
[2022-11-12 05:28] LABS: BASO % 0.1 % (0.0-1.0); EOS % 0.3 % (0.0-3.0); HEMATOCRIT 33.1 % (36.0-47.0); HEMOGLOBIN 11.2 g/dl (12.0-15.5); LYMPH # 3.3 10^3/uL (1.5-5.0); LYMPH % 46.1 % (24.0-44.0); MEAN CORPUSCULAR HEMOGLOBIN 33.8 pg (27.0-33.0); MEAN CORPUSCULAR HGB CONC 33.8 g/dl (32.0-36.5); MONO # 0.4 10^3/uL (0.0-0.8); MONO % 6.2 % (2.0-8.0); NEUTROPHILS # 3.4 10^3/uL (1.5-8.5); PLATELET COUNT, AUTOMATED 110 10^3/uL (150-450); RED BLOOD COUNT 3.31 10^6/uL (4.00-5.40); WHITE BLOOD COUNT 7.1 10^3/uL (4.0-10.0)
[2022-11-12 05:48] LABS: BLOOD UREA NITROGEN 11 MG/DL (9-23); CALCIUM LEVEL 7.9 MG/DL (8.5-10.1); CARBON DIOXIDE LEVEL 30 MMOL/L (20-31); CHLORIDE LEVEL 106 MMOL/L (98-107); CREATININE FOR GFR 0.56 MG/DL (0.55-1.30); GLOMERULAR FILTRATION RATE > 60.0 (>60); GLUCOSE, FASTING 89 MG/DL (60-100); POTASSIUM SERUM 4.1 MMOL/L (3.5-5.1); SODIUM LEVEL 140 MMOL/L (136-145)
[2022-11-12] MEDS: NS 1,000 ML IV SCH (07:10)
[2022-11-12] MEDS: PANTOPRAZOLE 40MG VIAL IV SCH ×2 (08:25→20:58)
[2022-11-12] MEDS: SUCRALFATE 1 GM TAB PO SCH ×3 (08:25→20:58)
[2022-11-12] MEDS ORDERED: ISOVUE-370 76% 100ML VIAL As Ordered ONE (16:27)
[2022-11-13 03:58] VITALS: BP 156/91
[2022-11-13 04:53] LABS: BASO % 0.3 % (0.0-1.0); EOS # 0.1 10^3/uL (0.0-0.5); EOS % 1.3 % (0.0-3.0); HEMATOCRIT 34.8 % (36.0-47.0); HEMOGLOBIN 12.1 g/dl (12.0-15.5); LYMPH # 2.9 10^3/uL (1.5-5.0); LYMPH % 42.7 % (24.0-44.0); MEAN CORPUSCULAR HEMOGLOBIN 33.8 pg (27.0-33.0); MEAN CORPUSCULAR HGB CONC 34.8 g/dl (32.0-36.5); MEAN CORPUSCULAR VOLUME 97.2 fl (80.0-96.0); MONO # 0.4 10^3/uL (0.0-0.8); MONO % 6.3 % (2.0-8.0); NEUTROPHILS # 3.3 10^3/uL (1.5-8.5); NEUTROPHILS % 49.1 % (36.0-66.0); PLATELET COUNT, AUTOMATED 107 10^3/uL (150-450); RED BLOOD COUNT 3.58 10^6/uL (4.00-5.40); WHITE BLOOD COUNT 6.8 10^3/uL (4.0-10.0)
[2022-11-13] MEDS: OXAZEPAM 15MG CAP PO SCH (05:03)
[2022-11-13] MEDS: HEPARIN SOD (PORCINE) 5000UNITS/ML 1ML VIAL/SYRINGE SC SCH (05:03)
[2022-11-13 05:25] LABS: BLOOD UREA NITROGEN 9 MG/DL (9-23); CALCIUM LEVEL 9.1 MG/DL (8.5-10.1); CARBON DIOXIDE LEVEL 29 MMOL/L (20-31); CHLORIDE LEVEL 101 MMOL/L (98-107); CREATININE FOR GFR 0.58 MG/DL (0.55-1.30); GLOMERULAR FILTRATION RATE > 60.0 (>60); GLUCOSE, FASTING 102 MG/DL (60-100); POTASSIUM SERUM 3.5 MMOL/L (3.5-5.1); SODIUM LEVEL 137 MMOL/L (136-145)
[2022-11-13 07:24] VITALS: BP 154/92
[2022-11-13] MEDS: SUCRALFATE 1 GM TAB PO SCH (09:08)
[2022-11-13] MEDS: PANTOPRAZOLE 40MG VIAL IV SCH (09:08)
[2022-11-13 09:10] LABS: APPEARANCE, URINE CLEAR (CLEAR); BACTERIA, URINE AUTO NEGATIVE (NEGATIVE); BILIRUBIN, URINE AUTO NEGATIVE (NEGATIVE); BLOOD, URINE BLOOD 1+ (NEGATIVE); COLOR, URINE YELLOW (YELLOW); GLUCOSE, URINE (UA) AUTO NEGATIVE (NEGATIVE); KETONE, URINE AUTO NEGATIVE (NEGATIVE); LEUKOCYTE ESTERASE, URINE AUTO NEGATIVE (NEGATIVE); NITRITE, URINE AUTO NEGATIVE (NEGATIVE); PROTEIN, URINE AUTO NEGATIVE (NEGATIVE); RBC, URINE AUTO 8 /HPF (0-3); SPECIFIC GRAVITY URINE AUTO 1.004 (1.002-1.035); SQUAMOUS EPITHELIAL CELL UR AU 3 /HPF (0-6); UROBILINOGEN, URINE AUTO 0.2 mg/dL (0.0-2.0); WBC, URINE AUTO 4 /HPF (0-3)
[2022-11-13] MEDS ORDERED: MULTIVITAMINS/MINERALS THERAP 1 TAB PO ONE (09:40)
[2022-11-13] MEDS ORDERED: THIAMINE 100 MG TAB PO ONE (09:40)
[2022-11-13] MEDS ORDERED: THIA100TA PO (09:55)
[2022-11-13] MEDS ORDERED: ESSETAB4 PO (09:55)
[2022-11-13] MEDS ORDERED: FOLI1TAB11 PO (12:13)
[2022-11-13] MEDS ORDERED: PANT20TA6 PO (12:18)
[2022-11-13] MEDS ORDERED: OXAZEPAM 15MG CAP PO SCH (13:00)
== END 2022-11-13 11:29 | disposition home or self-care (01) | DRG 775 ==
LOC: M ED 02:24 → M ED INP 10:46 → M PCU 16:52
PROVIDERS: ADMIT Internal Medicine; ATTEND Internal Medicine
DX: F10.231 Alcohol dependence with withdrawal delirium (principal); E83.42 Hypomagnesemia; R94.31 Abnormal electrocardiogram [ECG] [EKG]; E87.6 Hypokalemia; K29.20 Alcoholic gastritis without bleeding; E86.0 Dehydration; D72.829 Elevated white blood cell count, unspecified; Z88.0 Allergy status to penicillin; Z79.899 Other long term (current) drug therapy

== ENCOUNTER → 2022-11-15 | Outpatient (CLI) | payer OTHER ==
[~2022-11-15] MED LIST changes: +BUPR1FIL SL; +ESSETAB4 PO; +FOLI1TAB11 PO; +PANT20TA6 PO; +THIA100TA PO
[2022-11-15 14:56] LABS: THYROID STIMULATING HORMONE 5.094 uIU/ML (0.55-4.78)
[2022-11-15 14:57] LABS: VITAMIN B12 LEVEL 502 PG/ML (211-911)
[2022-11-15 14:59] LABS: FOLATE > 24.0 NG/ML (>5.4)
[2022-11-15 15:53] LABS: ALBUMIN 3.4 G/DL (3.2-5.2); ALKALINE PHOSPHATASE 75 U/L (46-116); ALT/SGPT 31 U/L (7.0-40); AST/SGOT 49 U/L (<34); BILIRUBIN,TOTAL 0.7 MG/DL (0.3-1.2); BLOOD UREA NITROGEN 11 MG/DL (9-23); CALCIUM LEVEL 8.4 MG/DL (8.5-10.1); CARBON DIOXIDE LEVEL 31 MMOL/L (20-31); CHLORIDE LEVEL 101 MMOL/L (98-107); CHOLESTEROL LEVEL 134 MG/DL (<200); CHOLESTEROL RISK RATIO 2.47 (<5); CREATININE FOR GFR 0.61 MG/DL (0.55-1.30); GLOMERULAR FILTRATION RATE > 60.0 (>60); GLUCOSE, FASTING 112 MG/DL (60-100); HDL CHOLESTEROL 54.2 MG/DL (>40); LDL CHOLESTEROL 66.4 MG/DL (<100); MAGNESIUM LEVEL 1.5 MG/DL (1.8-2.4); NON-HDL-C 80 MG/DL; POTASSIUM SERUM 2.8 MMOL/L (3.5-5.1); SODIUM LEVEL 137 MMOL/L (136-145); TOTAL PROTEIN 6.8 G/DL (5.7-8.2); TRIGLYCERIDES LEVEL 67 MG/DL (<150)
== END ==
LOC: M EKG 12:47
PROVIDERS: ATTEND Nurse Practitioner Family
DX: F10.130 Alcohol abuse with withdrawal, uncomplicated (principal); Z68.1 Body mass index [BMI] 19.9 or less, adult; E83.42 Hypomagnesemia; R16.0 Hepatomegaly, not elsewhere classified

== ENCOUNTER → 2022-11-22 | Outpatient (REF) | payer OTHER ==
[2022-11-22 17:43] LABS: BLOOD UREA NITROGEN 9 MG/DL (9-23); CALCIUM LEVEL 9.2 MG/DL (8.5-10.1); CARBON DIOXIDE LEVEL 30 MMOL/L (20-31); CHLORIDE LEVEL 100 MMOL/L (98-107); GLOMERULAR FILTRATION RATE > 60.0 (>60); GLUCOSE, FASTING 96 MG/DL (60-100); MAGNESIUM LEVEL 1.6 MG/DL (1.8-2.4); POTASSIUM SERUM 4.9 MMOL/L (3.5-5.1); SODIUM LEVEL 135 MMOL/L (136-145)
== END ==
LOC: M LAB REF 16:14
PROVIDERS: ATTEND Nurse Practitioner Family
DX: E87.6 Hypokalemia (principal); E83.42 Hypomagnesemia

== ENCOUNTER → 2022-12-04 | Outpatient (REF) | payer OTHER ==
[2022-12-04 17:51] LABS: BLOOD UREA NITROGEN 12 MG/DL (9-23); CALCIUM LEVEL 9.2 MG/DL (8.5-10.1); CARBON DIOXIDE LEVEL 27 MMOL/L (20-31); CHLORIDE LEVEL 103 MMOL/L (98-107); CREATININE FOR GFR 0.68 MG/DL (0.55-1.30); GLOMERULAR FILTRATION RATE > 60.0 (>60); GLUCOSE, FASTING 103 MG/DL (60-100); MAGNESIUM LEVEL 1.7 MG/DL (1.8-2.4); POTASSIUM SERUM 4.4 MMOL/L (3.5-5.1); SODIUM LEVEL 135 MMOL/L (136-145)
== END ==
LOC: M LAB REF 16:26
PROVIDERS: ATTEND Nurse Practitioner Family
DX: E83.42 Hypomagnesemia (principal)

== ENCOUNTER 2023-10-08 19:56 | Emergency (ER) | payer OTHER ==
[~2023-10-08] VITALS: Ht 180.3 cm; Wt 61.8 kg
[2023-10-08 21:08] LABS: BASO % 0.2 % (0.0-1.0); EOS # 0.1 10^3/uL (0.0-0.5); EOS % 1.2 % (0.0-3.0); HEMATOCRIT 35.6 % (36.0-47.0); HEMOGLOBIN 12.1 g/dl (12.0-15.5); LYMPH # 2.9 10^3/uL (1.5-5.0); LYMPH % 28.7 % (24.0-44.0); MEAN CORPUSCULAR HEMOGLOBIN 31.7 pg (27.0-33.0); MEAN CORPUSCULAR VOLUME 93.2 fl (80.0-96.0); MONO # 0.8 10^3/uL (0.0-0.8); MONO % 8.3 % (2.0-8.0); NEUTROPHILS # 6.2 10^3/uL (1.5-8.5); NEUTROPHILS % 61.3 % (36.0-66.0); PLATELET COUNT, AUTOMATED 210 10^3/uL (150-450); RED BLOOD COUNT 3.82 10^6/uL (4.00-5.40)
[2023-10-08 21:30] LABS: HCG, SERUM QUALITATIVE NEGATIVE (NEGATIVE)
[2023-10-08 21:31] LABS: BLOOD UREA NITROGEN 12 MG/DL (9-23); CALCIUM LEVEL 8.5 MG/DL (8.5-10.1); CARBON DIOXIDE LEVEL 28 MMOL/L (20-31); CHLORIDE LEVEL 105 MMOL/L (98-107); CREATININE FOR GFR 0.67 MG/DL (0.55-1.30); GLOMERULAR FILTRATION RATE > 60.0 (>60); GLUCOSE, FASTING 79 MG/DL (60-100); POTASSIUM SERUM 4.7 MMOL/L (3.5-5.1); SODIUM LEVEL 137 MMOL/L (136-145)
[2023-10-08 21:38] LABS: PROCALCITONIN <0.04 ng/ml
[2023-10-08] MEDS ORDERED: ISOVUE-370 76% 100ML VIAL As Ordered ONE (21:47)
[2023-10-08] MEDS ORDERED: dexAMETHasone 20MG/5ML VIAL IV ONE (22:20)
[2023-10-08] MEDS ORDERED: AMPICILLIN SOD/SULBACTAM SOD 3 GM in D5W MINI-BAG PLUS 100 ML IV ONE (22:20)
[2023-10-08] MEDS ORDERED: ACETAMINOPHEN 500 MG TAB PO ONE (22:40)
[2023-10-08 23:35] VITALS: BP 136/86; TEMP 98.9; O2SAT 98
[2023-10-09] MEDS ORDERED: XANA0.5T PO (16:26)
[2023-10-09] MEDS ORDERED: MOTR200T44 PO (16:26)
[2023-10-09] MEDS ORDERED: CITA20TA7 PO (16:26)
[2023-10-09] MEDS ORDERED: HYDR-643 PO (16:26)
[2023-10-09] MEDS ORDERED: ARIP1TAB4 PO (16:26)
[2023-10-09] MEDS ORDERED: BUPR150T12 PO (16:26)
== END 2023-10-08 23:40 | disposition home or self-care (01) ==
LOC: M ED 19:56
DX: K04.7 Periapical abscess without sinus (principal); Z79.899 Other long term (current) drug therapy; Z88.0 Allergy status to penicillin
CPT/HCPCS: 70487; 80048; 83605; 84145; 84703; 85025; 86140; 87040; 96365; 96375; 99283; J0295; J1100; Q9967

== ENCOUNTER → 2023-10-09 | Day surgery (SDC) | payer OTHER ==
[~2023-10-09] VITALS: Ht 180.3 cm; Wt 67.7 kg
[~2023-10-09] MED LIST changes: +ARIP1TAB4 PO; +BUPR150T12 PO; +CITA20TA7 PO; +HYDR-643 PO; +LR 1,000 ML IV SCH; +MOTR200T44 PO; +XANA0.5T PO
[2023-10-09 15:41] VITALS: BP 120/71; TEMP 97.8; O2SAT 97
== END | disposition home or self-care (01) ==
LOC: M SDC 15:33
PROVIDERS: ATTEND Dentist
DX: L02.01 Cutaneous abscess of face (principal); Z53.9 Procedure and treatment not carried out, unspecified reason

== ENCOUNTER 2023-10-10 14:29 | Day surgery (SDC) | payer OTHER ==
[~2023-10-10] VITALS: Ht 180.3 cm; Wt 67.9 kg
[~2023-10-10 14:29] MED LIST changes: -LR 1,000 ML IV SCH
[2023-10-10] MEDS ORDERED: ACETAMINOPHEN 1000MG 100ML IV BAG As Ordered ONE (14:45)
[2023-10-10] MEDS ORDERED: propofoL 200 MG/20 ML VIAL As Ordered ONE (14:46)
[2023-10-10] MEDS ORDERED: LIDOCAINE 2% 100MG/5ML SDV (FOR ANES.) As Ordered ONE (14:47)
[2023-10-10] MEDS ORDERED: SUGAMMADEX SODIUM 500 MG/5 ML VIAL (BRIDION) As Ordered ONE (14:47)
[2023-10-10] MEDS ORDERED: KETOROLAC 60MG 2ML VIAL As Ordered ONE (14:47)
[2023-10-10] MEDS ORDERED: ROCURONIUM BROMIDE 50MG/5ML VIAL As Ordered ONE (14:47)
[2023-10-10] MEDS ORDERED: ONDANSETRON 4MG 2ML VIAL As Ordered ONE (14:47)
[2023-10-10] MEDS ORDERED: MIDAZOLAM INJ 2MG/2ML VIAL As Ordered ONE (15:56)
[2023-10-10] MEDS ORDERED: fentaNYL 100 MCG/2 ML INJECTION As Ordered ONE (15:56)
[2023-10-10] MEDS ORDERED: LIDOCAINE 2% W/ EPINEPHRINE 1.7 ML DENTAL INJ As Ordered ONE (15:58)
[2023-10-10] MEDS ORDERED: OXYMETAZOLINE 0.05% NASAL SPRAY (AFRIN) As Ordered ONE (16:04)
[2023-10-10] MEDS ORDERED: AMPICILLIN SOD/SULBACTAM SOD 3 GM in D5W MINI-BAG PLUS 100 ML IV STA (16:50)
[2023-10-10] MEDS ORDERED: ONDANSETRON 4MG 2ML VIAL IV PRN (17:45)
[2023-10-10] MEDS ORDERED: LR 1,000 ML IV SCH (17:45)
[2023-10-10 18:40] VITALS: BP 125/78; TEMP 97.9; O2SAT 94
== END 2023-10-10 19:05 | disposition home or self-care (01) ==
LOC: M SDC 14:29
PROVIDERS: ATTEND Dentist
DX: K12.2 Cellulitis and abscess of mouth (principal); B96.89 Other specified bacterial agents as the cause of diseases classified elsewhere; K02.9 Dental caries, unspecified; F17.210 Nicotine dependence, cigarettes, uncomplicated; F41.9 Anxiety disorder, unspecified; B19.20 Unspecified viral hepatitis C without hepatic coma; F19.10 Other psychoactive substance abuse, uncomplicated; Z79.899 Other long term (current) drug therapy; Z88.0 Allergy status to penicillin
CPT/HCPCS: 81025; 87070; 87075; 87076; 87077; 87186; 87205; 88300; D7210; D7510; D9223; J0131; J0295; J1100; J1885; J2250; J2405; J3010

== ENCOUNTER 2025-05-14 10:21 | Emergency (ER) | payer OTHER ==
[~2025-05-14] VITALS: Ht 177.8 cm; Wt 55.0 kg
[~2025-05-14 10:21] MED LIST changes: +IBUP600T42 PO; +PERC10TA26 PO
[2025-05-14] MEDS ORDERED: CLON0.5T2 (10:39)
[2025-05-14] MEDS ORDERED: BUPR8SUB (10:39)
[2025-05-14 11:32] LABS: KETONE, URINE AUTO RFX 2+ mg/dL (NEGATIVE); LEUKOCYTE ESTERASE UR AUTO RFX NEGATIVE (NEGATIVE); MUCUS, URINE RFX LARGE (NEGATIVE); NITRITE, URINE AUTO RFX NEGATIVE (NEGATIVE); RBC, URINE AUTO RFX 4 /HPF (0-3); SQUAM EPITHELIAL CELL UR AURFX 17 /HPF (0-6); WBC, URINE AUTO RFX 5 /HPF (0-3)
[2025-05-14] MEDS: FAMOTIDINE 20 MG/2 ML VIAL IVP ONE (12:16)
[2025-05-14] MEDS: ONDANSETRON 4MG 2ML VIAL IV ONE (12:16)
[2025-05-14] MEDS ORDERED: ISOVUE-370 76% 100 ML VIAL As Ordered ONE (12:19)
[2025-05-14] MEDS: MORPHINE 2 MG/ML 1 ML VIAL IV PRN (12:22)
[2025-05-14 12:25] LABS: BASO # 0.0 10^3/uL (0.0-0.2); BASO % 0.1 % (0.0-1.0); EOS # 0.0 10^3/uL (0.0-0.5); EOS % 0.0 % (0.0-3.0); LYMPH # 1.2 10^3/uL (1.5-5.0); LYMPH % 9.6 % (24.0-44.0); MONO # 0.3 10^3/uL (0.0-0.8); MONO % 2.1 % (2.0-8.0); NEUTROPHILS # 10.5 10^3/uL (1.5-8.5); NEUTROPHILS % 87.7 % (36.0-66.0); PLATELET COUNT, AUTOMATED 404 10^3/uL (150-450)
[2025-05-14 12:45] LABS: INR 1.1
[2025-05-14 12:55] LABS: ALT/SGPT 25 U/L (7.0-40); AST/SGOT 24 U/L (<34); CALCIUM LEVEL 9.9 MG/DL (8.5-10.1); CARBON DIOXIDE LEVEL 27 MMOL/L (20-31); CHLORIDE LEVEL 102 MMOL/L (98-107); CREATININE FOR GFR 0.75 MG/DL (0.55-1.30); GLOMERULAR FILTRATION RATE > 90.0 (>60); POTASSIUM SERUM 4.3 MMOL/L (3.5-5.1); SODIUM LEVEL 142 MMOL/L (136-145)
[2025-05-14] MEDS ORDERED: MORPHINE 4 MG/ML 1 ML VIAL IV PRN (13:10)
[2025-05-14] MEDS ORDERED: REGL10TA6 PO (13:41)
[2025-05-14 13:49] LABS: HCG, SERUM QUALITATIVE NEGATIVE (NEGATIVE)
[2025-05-14 13:54] VITALS: BP 142/98; O2SAT 95
[2025-05-14 14:00] VITALS: TEMP 98.1
== END 2025-05-14 14:14 | disposition home or self-care (01) ==
LOC: EDBD 10:21 → M ED 10:21
DX: R11.2 Nausea with vomiting, unspecified (principal); R19.7 Diarrhea, unspecified; F17.200 Nicotine dependence, unspecified, uncomplicated; F19.10 Other psychoactive substance abuse, uncomplicated; Z88.0 Allergy status to penicillin
CPT/HCPCS: 71045; 74177; 76705; 80047; 80048; 80076; 81001; 83605; 83690; 84703; 85025; 85610; 85730; 93005; 93041; 96374; 96375; 96376; 99284; J1308; J2405; Q9967

== ENCOUNTER → 2025-06-21 | Outpatient (CLI) | payer OTHER ==
[~2025-06-21] MED LIST changes: +BUPR8SUB; +CLON0.5T2; +REGL10TA6 PO
== END ==
LOC: M RAD 07:52
PROVIDERS: ATTEND Internal Medicine Addiction Medicine
DX: R10.9 Unspecified abdominal pain (principal)

== ENCOUNTER → 2025-08-05 | Outpatient (CLI) | payer OTHER | LOC: M SOG 12:47 | PROVIDERS: ATTEND Orthopaedic Surgery Hand Surgery | DX: M25.522 Pain in left elbow (principal); R93.6 Abnormal findings on diagnostic imaging of limbs ==

== ENCOUNTER → 2025-08-17 | Outpatient (CLI) | payer OTHER | LOC: M PLAIMG 12:45 | PROVIDERS: ATTEND Internal Medicine Addiction Medicine | DX: M84.422A Pathological fracture, left humerus, initial encounter for fracture (principal); Y93.9 Activity, unspecified; Y92.9 Unspecified place or not applicable ==